=== PATIENT | female | born 2000 | race Caucasian/White ===

== ENCOUNTER 2022-05-19 19:55 | Emergency (ER) | payer OTHER ==
[2022-05-19 20:06] VITALS: TEMP 98.5
[2022-05-19 20:34] LABS: Appearance,Urine Clear (Clear); Bilirubin,Urine Negative (Negative); Blood,Urine Moderate (Negative); Color,Urine Yellow; Glucose,Urine (UA) Negative (Negative); Ketones,Urine 1+ (Negative); Leukocyte Esterase,Urine Negative (Negative); Mucus,Urine Few /hpf; Nitrite,Urine Negative (Negative); Protein,Urine Trace (Negative); RBC,Urine 7 /hpf (0-5); Specific Gravity,Urine 1.029 (1.001-1.035); Squamous Epithelial Cell,Urine 2 /hpf (0-4); WBC,Urine 2 /hpf (0-5)
[2022-05-19] MEDS ORDERED: ACETAMINOPHEN TAB 500 MG TAB PO STA (21:07)
--- NOTE | 2022-05-19 21:31 | ED ---
General Adult HPI - General Chief complaint: Vaginal Bleeding Stated complaint: , not feeling well Time Seen by Provider: 05/19/22 21:00 Source: patient, family Mode of arrival: ambulatory Limitations: no limitations - History of Present Illness Initial comments: Well-appearing 22-year-old female presents to the emergency room with pelvic cramping and vaginal bleeding. Patient states that she did take an at home test that was positive. States that she confirmed in multiple times. She has an appointment next week with an [employer]. She states that she was at work and felt some pelvic discomfort and then today after having sexual intercourse she had some pelvic pain and bleeding. States that the pain radiates into her back. She has had 9 previous pregnancies, one live child, states the rest were miscarriages. -: days(s) (1) Location: pelvis Radiation: back Severity scale (1-10): 5 Quality: other (cramping) Associated Symptoms: denies other symptoms - Related Data Home Medications Medication Instructions Recorded Confirmed [id number] Acid 1 cap PO DAILY 05/19/22 05/19/22 [-U Capsule (formulary)] Allergies Allergy/AdvReac Type Severity Reaction Status Date / Time No Known Allergies Allergy Verified 05/19/22 21:37 Review of Systems ROS Statement: Those systems with pertinent positive or pertinent negative responses have been documented in the HPI. ROS Other: All systems not noted in ROS Statement are negative. Past Medical History Past Medical History: No Reported History History of Any Multi-Drug Resistant Organisms: None Reported Past Surgical History: No Surgical Hx Reported Past Psychological History: No Psychological Hx Reported Smoking Status: Current every day smoker Past Alcohol Use History: Occasional Past Drug Use History: None Reported General Exam Limitations: no limitations General appearance: alert, in no apparent distress Head exam: Present: atraumatic Eye exam: Present: normal appearance. Absent: scleral icterus, conjunctival injection Neck exam: Absent: meningismus Respiratory exam: Present: normal lung sounds bilaterally. Absent: respiratory distress, accessory muscle use Cardiovascular Exam: Present: regular rate, normal rhythm GI/Abdominal exam: Present: soft. Absent: distended, tenderness Extremities exam: Present: normal capillary refill. Absent: pedal edema Back exam: Present: paraspinal tenderness (LS spine). Absent: tenderness, CVA tenderness (R), CVA tenderness (L) Neurological exam: Present: alert, oriented X3 Psychiatric exam: Present: normal affect, normal mood Skin exam: Present: warm, dry, normal color. Absent: cyanosis, diaphoretic, petechiae, pallor Course Vital Signs 05/19/22 05/19/22 05/19/22 20:02 21:00 21:30 Temperature 98.5 F Pulse Rate 93 89 90 Respiratory 20 20 18 Rate Blood Pressure 135/73 117/79 107/56 O2 Sat by Pulse 98 99 97 Oximetry Medical Decision Making - Medical Decision Making Patient present with vaginal cramping and bleeding today after intercourse. States that she took multiple home test that states that she was . Urine and serum hCG negative. This is likely her menses causing her vaginal bleeding and pelvic cramping. She has appointment with her [employer] this Tuesday. She was instructed to keep that appointment and return to the emergency room with a new or concerning symptoms. Case discussed with Dr. Maxwell. Vital signs are stable. - Lab Data Lab Results 05/19/22 05/19/22 05/19/22 Range/Units 20:18 20:46 20:46 HCG, Quant <2.4 mIU/mL Urine Color Yellow Urine Appearance Clear (Clear) Urine pH 6.0 (5.0-8.0) Ur Specific Candor 1.029 (1.001-1.035) Urine Protein Trace H (Negative) Urine Glucose (UA) Negative (Negative) Urine Ketones 1+ H (Negative) Urine Blood Moderate H (Negative) Urine Nitrite Negative (Negative) Urine Bilirubin Negative (Negative) Urine Urobilinogen 2.0 (<2.0) mg/dL Ur Leukocyte Esterase Negative (Negative) Urine RBC 7 H (0-5) /hpf Urine WBC 2 (0-5) /hpf Ur Squamous Epith Cells 2 (0-4) /hpf Urine Mucus Few H (None) /hpf Urine HCG, Qual Not Detected (Not Detectd) Disposition Clinical Impression: Vaginal bleeding Disposition: HOME SELF-CARE Condition: Good Instructions (If sedation given, give patient instructions): Abnormal (Dysfunctional) Uterine Bleeding (ED) Additional Instructions: Keep your appointment as scheduled with your [employer] this Tuesday. Return to the emergency room with any new or concerning symptoms. Increase your fluid intake. Tylenol and Motrin as needed for pain. You can also use warm compresses to help with cramping. Is patient prescribed a controlled substance at d/c from ED?: No Referrals: Jono Manzano MD [Primary Care Provider] - 1-2 days Time of Disposition: 21:38
[2022-05-19 22:00] VITALS: BP 107/56; PULSE 90; RESP 18
== END 2022-05-19 21:50 | disposition home or self-care (01) ==
LOC: EC 19:55
DX: N93.9 Abnormal uterine and vaginal bleeding, unspecified (principal); R10.2 Pelvic and perineal pain; F17.200 Nicotine dependence, unspecified, uncomplicated
CPT/HCPCS: 36415; 81001; 81025; 84702; 99284